=== PATIENT | male | born 1965 | race African-American/Black ===

== ENCOUNTER 2017-11-02 10:01 | Emergency (ER) | payer OTHER, MEDICARE ==
[~2017-11-02] VITALS: Ht 182.9 cm; Wt 100.0 kg
[~2017-11-02 10:01] MED LIST: METOPROLOL PO; NORVASC PO; PLAVIX PO
[2017-11-02] MEDS ORDERED: TETANUS, DIPHTHERIA, PERTUSSIS VAC/PF 0.5ML (>7YR OLD) IM ONE (11:30)
[2017-11-02 12:23] VITALS: BP 122/81
== END 2017-11-02 12:26 | disposition home or self-care (01) ==
LOC: ER 11:19
DX: S40.012A Contusion of left shoulder, initial encounter (principal); S20.222A Contusion of left back wall of thorax, initial encounter; M10.9 Gout, unspecified; M79.1 Myalgia; I10 Essential (primary) hypertension; E78.00 Pure hypercholesterolemia, unspecified; W10.0XXA Fall (on)(from) escalator, initial encounter; Y93.89 Activity, other specified; Y92.89 Other specified places as the place of occurrence of the external cause; Y99.8 Other external cause status
CPT/HCPCS: 90471; 90715; 99283

== ENCOUNTER 2017-12-20 18:02 | Emergency (ER) | payer OTHER, MEDICARE ==
[~2017-12-20] VITALS: Ht 182.9 cm; Wt 100.0 kg
[2017-12-20] MEDS ORDERED: ERYTHROMYCIN BASE 0.5% OPHTH OINT 3.5GM BOTHEYE ONE (20:00)
[2017-12-20 20:15] VITALS: BP 125/75
[2017-12-20] MEDS ORDERED: ERYTHROMYCIN BASE 0.5% OPHTH OINT UD BOTHEYE NR (20:15)
== END 2017-12-20 20:23 | disposition home or self-care (01) ==
LOC: ER 18:02
DX: B99.8 Other infectious disease (principal); H10.89 Other conjunctivitis; I10 Essential (primary) hypertension; Z86.73 Personal history of transient ischemic attack (TIA), and cerebral infarction without residual deficits
CPT/HCPCS: 99283